=== PATIENT | female | born 1955 | race Asian ===

== ENCOUNTER 2020-04-20 23:56 | Inpatient (IN) | payer BC ==
[~2020-04-20] VITALS: Ht 160 cm; Wt 41.9 kg
[2020-04-21 00:04] VITALS: Ht 160 cm; Wt 41.9 kg
[2020-04-21 00:38] LABS: PLATELET COUNT 262 x10^3mcL (179-408); RED CELL DISTRIBUTION WIDTH 13.7 % (12.3-17.7)
[2020-04-21 00:40] LABS: BASOPHIL % 0.3 % (0.2-1.3)
[2020-04-21 00:55] LABS: rbc morphology (normal/abnorm) ABNORMAL (NORMAL)
[2020-04-21 00:59] LABS: CALCIUM 8.3 mg/dL (8.5-10.1); CARBON DIOXIDE 20.8 mmol/L (21-32); POTASSIUM SERUM 4.8 mmol/L (3.5-5.1)
[2020-04-21 01:04] LABS: BILIRUBIN TOTAL 0.28 mg/dL (0.20-1.00)
[2020-04-21 01:05] LABS: ALBUMIN 2.5 g/dL (3.4-5.0); TOTAL PROTEIN, SERUM 5.5 g/dL (6.4-8.2)
[2020-04-21] MEDS ORDERED: WARFARIN SOD2 MG PO (01:50)
[2020-04-21] MEDS ORDERED: ENALAPRIL MALE2.5 MG PO (01:50)
[2020-04-21] MEDS ORDERED: CARVEDILOL12.5 M1 PO (01:51)
[2020-04-21 05:08] LABS: microscopic required? YES; urine erythrocyte 3+ (NEGATIVE)
[2020-04-21 08:58] LABS: BASOPHIL % 0.4 % (0.2-1.3); PLATELET COUNT 194 x10^3mcL (179-408)
[2020-04-21 09:17] LABS: CALCIUM 8.2 mg/dL (8.5-10.1); CARBON DIOXIDE 21.7 mmol/L (21-32); CHLORIDE SERUM 112 mmol/L (98-107); CREATININE SERUM 0.7 mg/dL (0.6-1.0); GFR1 > 60 mL/min; GLUCOSE SERUM 73 mg/dL (74-106); POTASSIUM SERUM 3.8 mmol/L (3.5-5.1); SODIUM SERUM 145 mmol/L (136-145)
[2020-04-22 09:25] VITALS: BP 153/85
[2020-04-22 16:10] VITALS: BP 148/79
[2020-04-22 20:50] VITALS: BP 187/88
[2020-04-23 04:11] VITALS: BP 139/70
[2020-04-23 07:52] LABS: BASOPHIL % 0.2 % (0.2-1.3); PLATELET COUNT 169 x10^3mcL (179-408)
[2020-04-23 08:08] LABS: ALKALINE PHOSPHATASE 24 U/L (46-116); ALT/SGPT 32 U/L (14-59); AST/SGOT 29 U/L (15-37); BILIRUBIN TOTAL 1.3 mg/dL (0.20-1.00); CALCIUM 7.7 mg/dL (8.5-10.1); CARBON DIOXIDE 16.9 mmol/L (21-32); CHLORIDE SERUM 116 mmol/L (98-107); CREATININE SERUM 0.8 mg/dL (0.6-1.0); GFR1 > 60 mL/min; GLUCOSE SERUM 83 mg/dL (74-106); POTASSIUM SERUM 3.4 mmol/L (3.5-5.1); SODIUM SERUM 150 mmol/L (136-145)
[2020-04-23 08:11] LABS: ALBUMIN 2.5 g/dL (3.4-5.0); TOTAL PROTEIN, SERUM 5.3 g/dL (6.4-8.2)
[2020-04-23 08:50] LABS: RED CELL DISTRIBUTION WIDTH 14.9 % (12.3-17.7)
[2020-04-23 09:01] VITALS: BP 143/61
[2020-04-23 12:59] VITALS: BP 155/73
[2020-04-23 16:59] VITALS: BP 143/75
[2020-04-23 19:54] VITALS: BP 155/60
[2020-04-24 04:38] VITALS: BP 176/96
[2020-04-24 07:28] VITALS: BP 151/80
[2020-04-24 07:31] LABS: BASOPHIL % 0.5 % (0.2-1.3)
[2020-04-24 08:01] LABS: PLATELET COUNT 102 x10^3mcL (179-408); RED CELL DISTRIBUTION WIDTH 14.6 % (12.3-17.7)
[2020-04-24 08:23] LABS: CALCIUM 8.6 mg/dL (8.5-10.1); CARBON DIOXIDE 22.3 mmol/L (21-32); CHLORIDE SERUM 110 mmol/L (98-107); CREATININE SERUM 0.6 mg/dL (0.6-1.0); GFR1 > 60 mL/min; GLUCOSE SERUM 199 mg/dL (74-106); MAGNESIUM 1.9 mg/dL (1.8-2.4); PHOSPHOROUS 2.7 mg/dL (2.5-4.9); POTASSIUM SERUM 4.3 mmol/L (3.5-5.1); SODIUM SERUM 144 mmol/L (136-145)
[2020-04-24 08:40] VITALS: BP 155/76
[2020-04-24 17:45] VITALS: BP 145/72
[2020-04-24 21:55] VITALS: BP 128/68
[2020-04-25 05:55] VITALS: BP 125/74
[2020-04-25 08:40] VITALS: BP 133/70
[2020-04-25 10:29] LABS: CALCIUM 9.5 mg/dL (8.5-10.1); CARBON DIOXIDE 27.5 mmol/L (21-32); CHLORIDE SERUM 107 mmol/L (98-107); CREATININE SERUM 0.7 mg/dL (0.6-1.0); GFR1 > 60 mL/min; GLUCOSE SERUM 110 mg/dL (74-106); MAGNESIUM 2.1 mg/dL (1.8-2.4); PHOSPHOROUS 3.3 mg/dL (2.5-4.9); POTASSIUM SERUM 3.2 mmol/L (3.5-5.1); SODIUM SERUM 145 mmol/L (136-145)
[2020-04-25 12:06] VITALS: BP 107/60
[2020-04-25 12:53] LABS: PLATELET COUNT 180 x10^3mcL (179-408)
[2020-04-25 12:54] LABS: RED CELL DISTRIBUTION WIDTH 14.6 % (12.3-17.7)
[2020-04-25 12:56] LABS: BAND NEUTROPHIL 0 % (0-10); BASOPHIL 0 % (0-2); MONOCYTE 5 % (0-7); SEGMENTED NEUTROPHILS 83 % (37-75)
[2020-04-25 12:57] LABS: rbc morphology (normal/abnorm) NORMAL (NORMAL)
[2020-04-25 16:15] VITALS: BP 96/57
[2020-04-25 20:54] VITALS: BP 106/61
[2020-04-26 06:02] VITALS: BP 105/57
[2020-04-26 07:56] LABS: BASOPHIL % 0.3 % (0.2-1.3); PLATELET COUNT 195 x10^3mcL (179-408)
[2020-04-26 08:19] VITALS: BP 124/65
[2020-04-26 08:25] LABS: CALCIUM 8.5 mg/dL (8.5-10.1); CARBON DIOXIDE 24.8 mmol/L (21-32); CHLORIDE SERUM 104 mmol/L (98-107); CREATININE SERUM 0.8 mg/dL (0.6-1.0); GFR1 > 60 mL/min; GLUCOSE SERUM 141 mg/dL (74-106); MAGNESIUM 1.8 mg/dL (1.8-2.4); PHOSPHOROUS 3.7 mg/dL (2.5-4.9); POTASSIUM SERUM 3.2 mmol/L (3.5-5.1); SODIUM SERUM 147 mmol/L (136-145)
[2020-04-26 08:43] LABS: RED CELL DISTRIBUTION WIDTH 14.8 % (12.3-17.7)
[2020-04-26 11:40] VITALS: BP 134/57
[2020-04-26 16:17] VITALS: BP 142/75
[2020-04-26 19:10] LABS: BASOPHIL % 0.8 % (0.2-1.3); PLATELET COUNT 223 x10^3mcL (179-408)
[2020-04-26 19:20] LABS: RED CELL DISTRIBUTION WIDTH 14.8 % (12.3-17.7)
[2020-04-26 20:17] VITALS: BP 164/59
[2020-04-27 05:30] VITALS: BP 122/63
[2020-04-27 09:06] VITALS: BP 131/57
[2020-04-27 09:26] LABS: BASOPHIL % 0.2 % (0.2-1.3); PLATELET COUNT 224 x10^3mcL (179-408)
[2020-04-27 09:31] LABS: RED CELL DISTRIBUTION WIDTH 14.9 % (12.3-17.7)
[2020-04-27 09:48] LABS: ALKALINE PHOSPHATASE 39 U/L (46-116); ALT/SGPT 17 U/L (14-59); AST/SGOT 15 U/L (15-37); BILIRUBIN TOTAL 0.51 mg/dL (0.20-1.00); CALCIUM 9.4 mg/dL (8.5-10.1); CARBON DIOXIDE 26.5 mmol/L (21-32); CHLORIDE SERUM 105 mmol/L (98-107); CREATININE SERUM 0.6 mg/dL (0.6-1.0); GFR1 > 60 mL/min; GLUCOSE SERUM 147 mg/dL (74-106); PHOSPHOROUS 3.8 mg/dL (2.5-4.9); POTASSIUM SERUM 3.9 mmol/L (3.5-5.1); SODIUM SERUM 140 mmol/L (136-145)
[2020-04-27 12:22] VITALS: BP 121/60
[2020-04-27 17:25] VITALS: BP 119/69
[2020-04-28 06:20] VITALS: BP 121/50
[2020-04-28 07:14] LABS: BASOPHIL % 0.8 % (0.2-1.3); PLATELET COUNT 236 x10^3mcL (179-408)
[2020-04-28 07:30] LABS: CALCIUM 9.1 mg/dL (8.5-10.1); CARBON DIOXIDE 29.1 mmol/L (21-32); CHLORIDE SERUM 105 mmol/L (98-107); CREATININE SERUM 0.7 mg/dL (0.6-1.0); GFR1 > 60 mL/min; GLUCOSE SERUM 82 mg/dL (74-106); PHOSPHOROUS 3.2 mg/dL (2.5-4.9); POTASSIUM SERUM 3.5 mmol/L (3.5-5.1); SODIUM SERUM 140 mmol/L (136-145)
[2020-04-28 07:38] LABS: RED CELL DISTRIBUTION WIDTH 15.4 % (12.3-17.7)
[2020-04-28 21:14] VITALS: BP 101/52
[2020-04-29 04:40] VITALS: BP 114/67
[2020-04-29 06:31] LABS: BASOPHIL % 0.7 % (0.2-1.3); PLATELET COUNT 260 x10^3mcL (179-408)
[2020-04-29 06:35] LABS: RED CELL DISTRIBUTION WIDTH 15.9 % (12.3-17.7)
[2020-04-29 06:42] LABS: CALCIUM 9.3 mg/dL (8.5-10.1); CARBON DIOXIDE 25.4 mmol/L (21-32); CHLORIDE SERUM 107 mmol/L (98-107); CREATININE SERUM 0.7 mg/dL (0.6-1.0); GFR1 > 60 mL/min; GLUCOSE SERUM 81 mg/dL (74-106); PHOSPHOROUS 2.8 mg/dL (2.5-4.9); POTASSIUM SERUM 3.4 mmol/L (3.5-5.1); SODIUM SERUM 142 mmol/L (136-145)
[2020-04-29 08:30] VITALS: BP 131/54
[2020-04-29 15:10] VITALS: BP 125/54
[2020-04-29 16:01] VITALS: BP 125/54
[2020-04-29] MEDS ORDERED: COU2 PO (17:15)
[2020-04-29] MEDS ORDERED: NOVAPLUS L40 MG/0.4 SC (17:18)
== END 2020-04-29 19:00 | disposition home or self-care (01) | DRG 377 ==
LOC: ED 23:56 → IC 04-21 01:35 → DU 04-21 01:35 → MU 04-28 21:14
PROVIDERS: Internal Medicine; Internal Medicine Gastroenterology; Student in an Organized Health Care Education/Training Program; ADMIT Family Medicine; ATTEND Family Medicine
PROC: 0DB68ZX Excision of Stomach, Via Natural or Artificial Opening Endoscopic, Diagnostic (ICD-10-PCS; principal; 2020-04-21 13:00)
PROC: 30233N1 Transfusion of Nonautologous Red Blood Cells into Peripheral Vein, Percutaneous Approach (ICD-10-PCS; 2020-04-21 13:00)
PROC: 02HV33Z Insertion of Infusion Device into Superior Vena Cava, Percutaneous Approach (ICD-10-PCS; 2020-04-25)
DX: K92.2 Gastrointestinal hemorrhage, unspecified (principal); E43 Unspecified severe protein-calorie malnutrition; I42.9 Cardiomyopathy, unspecified; D68.59 Other primary thrombophilia; D62 Acute posthemorrhagic anemia; Z68.1 Body mass index [BMI] 19.9 or less, adult; N17.9 Acute kidney failure, unspecified; I48.91 Unspecified atrial fibrillation; T45.515A Adverse effect of anticoagulants, initial encounter; T45.1X5A Adverse effect of antineoplastic and immunosuppressive drugs, initial encounter; K31.7 Polyp of stomach and duodenum; Z88.2 Allergy status to sulfonamides; Z90.12 Acquired absence of left breast and nipple; Z85.3 Personal history of malignant neoplasm of breast; Z86.718 Personal history of other venous thrombosis and embolism; Z79.01 Long term (current) use of anticoagulants; Y92.89 Other specified places as the place of occurrence of the external cause
CPT/HCPCS: 43235; 45378; 82962; 88344; A9698; C9113; C9132; G0378; J0171; J0360; J1160; J1200; J1610; J1650; J1815; J2250; J2310; J2543; J2916; J3010; J3430; J3480; J3490; J7030; J7040; J7050; J7070; J7131; P9016; Q9966; Q9967

== ENCOUNTER 2020-05-04 11:44 | Inpatient (IN) | payer BC ==
[~2020-05-04] VITALS: Ht 157.5 cm; Wt 40.8 kg
[~2020-05-04 11:44] MED LIST: CARVEDILOL12.5 M1 PO; COU2 PO; ENALAPRIL MALE2.5 MG PO; NOVAPLUS L40 MG/0.4 SC; WARFARIN SOD2 MG PO
[2020-05-04 16:36] LABS: microscopic required? YES; urine erythrocyte 1+ (NEGATIVE)
[2020-05-04 16:36] LABS: BASOPHIL % 0.6 % (0.2-1.3)
[2020-05-04 16:45] LABS: PLATELET COUNT 424 x10^3mcL (179-408); RED CELL DISTRIBUTION WIDTH 15.7 % (12.3-17.7)
[2020-05-04 16:48] LABS: AMPHETAMINE QUAL UR NONE DETECTED (See below)
[2020-05-04 17:43] LABS: CALCIUM 9.2 mg/dL (8.5-10.1); CARBON DIOXIDE 28.2 mmol/L (21-32); CHLORIDE SERUM 104 mmol/L (98-107); CREATININE SERUM 0.8 mg/dL (0.6-1.0); GFR1 > 60 mL/min; GLUCOSE SERUM 126 mg/dL (74-106); POTASSIUM SERUM 5.2 mmol/L (3.5-5.1); SODIUM SERUM 139 mmol/L (136-145)
[2020-05-04 17:55] LABS: ALKALINE PHOSPHATASE 88 U/L (46-116); ALT/SGPT 176 U/L (14-59); AST/SGOT 100 U/L (15-37); BILIRUBIN TOTAL 0.13 mg/dL (0.20-1.00); CHOLESTEROL 150 mg/dL (<200); HDL CHOLESTEROL 39 mg/dL (40-60); LIPASE 263 IU/L (73-393); TOTAL PROTEIN, SERUM 6.7 g/dL (6.4-8.2)
[2020-05-04 17:57] LABS: ALBUMIN 2.5 g/dL (3.4-5.0); T4(THYROXINE) 19.6 ug/dL (4.7-13.3)
[2020-05-05 01:28] LABS: BASOPHIL % 0.6 % (0.2-1.3); PLATELET COUNT 314 x10^3mcL (179-408)
[2020-05-05 01:43] LABS: RED CELL DISTRIBUTION WIDTH 15.3 % (12.3-17.7)
[2020-05-05 04:44] VITALS: BP 129/70
[2020-05-05 05:14] VITALS: BP 132/66
[2020-05-05 08:15] LABS: BASOPHIL % 0.3 % (0.2-1.3); PLATELET COUNT 294 x10^3mcL (179-408)
[2020-05-05 08:23] LABS: RED CELL DISTRIBUTION WIDTH 18.4 % (12.3-17.7)
[2020-05-05 09:08] LABS: CALCIUM 8.4 mg/dL (8.5-10.1); CARBON DIOXIDE 26.6 mmol/L (21-32); CHLORIDE SERUM 108 mmol/L (98-107); CREATININE SERUM 0.7 mg/dL (0.6-1.0); GFR1 > 60 mL/min; GLUCOSE SERUM 83 mg/dL (74-106); MAGNESIUM 2.2 mg/dL (1.8-2.4); PHOSPHOROUS 3.6 mg/dL (2.5-4.9); SODIUM SERUM 142 mmol/L (136-145)
[2020-05-05 10:20] VITALS: BP 128/65
[2020-05-05 12:15] LABS: BASOPHIL % 0.9 % (0.2-1.3); PLATELET COUNT 305 x10^3mcL (179-408)
[2020-05-05 12:24] LABS: RED CELL DISTRIBUTION WIDTH 18.7 % (12.3-17.7)
[2020-05-05 14:59] VITALS: BP 124/68
[2020-05-05 15:41] LABS: BASOPHIL % 0.8 % (0.2-1.3); PLATELET COUNT 299 x10^3mcL (179-408)
[2020-05-05 15:43] LABS: RED CELL DISTRIBUTION WIDTH 18.7 % (12.3-17.7)
[2020-05-05 18:13] VITALS: BP 125/70
[2020-05-05 20:30] VITALS: BP 134/66
[2020-05-06 05:50] VITALS: BP 142/73
[2020-05-06 07:19] LABS: BASOPHIL % 0.5 % (0.2-1.3); PLATELET COUNT 303 x10^3mcL (179-408)
[2020-05-06 07:35] LABS: RED CELL DISTRIBUTION WIDTH 18.9 % (12.3-17.7)
[2020-05-06 07:48] LABS: CALCIUM 7.6 mg/dL (8.5-10.1); CARBON DIOXIDE 24.7 mmol/L (21-32); CHLORIDE SERUM 113 mmol/L (98-107); CREATININE SERUM 0.6 mg/dL (0.6-1.0); GFR1 > 60 mL/min; GLUCOSE SERUM 90 mg/dL (74-106); PHOSPHOROUS 2.8 mg/dL (2.5-4.9); POTASSIUM SERUM 3.5 mmol/L (3.5-5.1); SODIUM SERUM 146 mmol/L (136-145)
[2020-05-06 09:05] VITALS: BP 140/67
[2020-05-06 12:03] VITALS: BP 134/62
[2020-05-06 16:36] VITALS: BP 139/74
[2020-05-06 20:51] VITALS: BP 132/74
[2020-05-06 21:06] VITALS: Ht 157.5 cm; Wt 40.8 kg
[2020-05-07 06:00] VITALS: BP 132/76
[2020-05-07 07:47] LABS: BASOPHIL % 0.4 % (0.2-1.3); PLATELET COUNT 326 x10^3mcL (179-408)
[2020-05-07 07:55] LABS: RED CELL DISTRIBUTION WIDTH 19.3 % (12.3-17.7)
[2020-05-07 08:08] VITALS: BP 139/71
[2020-05-07 08:15] LABS: CALCIUM 7.8 mg/dL (8.5-10.1); CARBON DIOXIDE 26.7 mmol/L (21-32); CHLORIDE SERUM 111 mmol/L (98-107); CREATININE SERUM 0.5 mg/dL (0.6-1.0); GFR1 > 60 mL/min; GLUCOSE SERUM 84 mg/dL (74-106); PHOSPHOROUS 2.9 mg/dL (2.5-4.9); POTASSIUM SERUM 3.4 mmol/L (3.5-5.1); SODIUM SERUM 142 mmol/L (136-145)
[2020-05-07 11:23] VITALS: BP 139/71
[2020-05-07] MEDS ORDERED: FER300 PO (12:39)
[2020-05-07] MEDS ORDERED: NOVAPLUS L40 MG/0.4 SC (12:39)
== END 2020-05-07 14:41 | disposition home or self-care (01) | DRG 374 ==
LOC: ED 11:44 → EDBEDREQ 18:20 → DU 18:20
PROVIDERS: Emergency Medicine; Internal Medicine; ADMIT Family Medicine; ATTEND Family Medicine
PROC: 30233N1 Transfusion of Nonautologous Red Blood Cells into Peripheral Vein, Percutaneous Approach (ICD-10-PCS; principal; 2020-05-04)
DX: C49.A0 Gastrointestinal stromal tumor, unspecified site (principal); E43 Unspecified severe protein-calorie malnutrition; D62 Acute posthemorrhagic anemia; I42.9 Cardiomyopathy, unspecified; K92.2 Gastrointestinal hemorrhage, unspecified; Z68.1 Body mass index [BMI] 19.9 or less, adult; Z20.822 Contact with and (suspected) exposure to COVID-19; I10 Essential (primary) hypertension; R73.9 Hyperglycemia, unspecified; E87.5 Hyperkalemia; R74.01 Elevation of levels of liver transaminase levels; I48.0 Paroxysmal atrial fibrillation; E05.00 Thyrotoxicosis with diffuse goiter without thyrotoxic crisis or storm; Z88.2 Allergy status to sulfonamides; Z86.718 Personal history of other venous thrombosis and embolism; Z79.01 Long term (current) use of anticoagulants; Z90.12 Acquired absence of left breast and nipple; Z85.3 Personal history of malignant neoplasm of breast; Z79.899 Other long term (current) drug therapy
CPT/HCPCS: 82962; 83880; C9113; G0378; G0480; J1650; J3490; J7030; J7042; J7050; P9016; Q0163; U0003